=== PATIENT | female | born 1990 | race African-American/Black ===

== ENCOUNTER 2024-09-20 12:31 | Emergency (ER) | payer MEDICAID, OTHER ==
[~2024-09-20] VITALS: Ht 157.5 cm; Wt 75.0 kg
[2024-09-20 12:47] VITALS: O2SAT 100
[2024-09-20] MEDS ORDERED: NALO4SPR BOTHNSTRLS (13:49)
[2024-09-20] MEDS ORDERED: T3 PO ×2 (13:49→14:15)
[2024-09-20 14:27] VITALS: BP 99/69; PULSE 67; RESP 14; TEMP 36.6; O2SAT 100
== END 2024-09-20 14:28 | disposition home or self-care (01) ==
LOC: ER 12:54
DX: K08.89 Other specified disorders of teeth and supporting structures (principal); J45.909 Unspecified asthma, uncomplicated
CPT/HCPCS: 99283